=== PATIENT | female | born 1950 | race Caucasian/White ===

== ENCOUNTER → 2016-05-16 | Outpatient (CLI) | payer MEDICARE ==
[~2016-05-16] MED LIST: ALENDRONATE SOD10 M1 PO; ARTHRITIS PAIN325 M1 PO; ATIVAN 2MG2 MG PO; DITROPAN 5MG TAB5 MG PO; ESCITALOPRAM10 MG PO; LORAZEPAM0.5 M1 PO; MIRALAX17 GM PO; OMEPRAZOLE D/R20 MG PO; PRISTIQ100 MG PO; VITAMIN E100 I3 PO; ZOLPIDEM10 MG PO; ZYPREXA15 MG PO
== END ==
LOC: RAD 13:32
DX: S89.91XA Unspecified injury of right lower leg, initial encounter (principal)